=== PATIENT | female | born 1955 | race Caucasian/White ===

== ENCOUNTER 2022-01-19 12:56 | Emergency (ER) | payer MEDICARE ==
[2022-01-19 13:11] VITALS: BP 158/109
--- NOTE | 2022-01-19 13:17 | ED Physician Documentation ---
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 Tetanus is up-to-date. No loss of consciousness or headache. 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, No motor deficit, No sensory deficit, Normal speech Eye Opening: Spontaneous Motor: Obeys Commands Verbal: Oriented GCS Score: 15 - Psych Psych: Normal mood, Normal affect Results - Vitals Vitals: Vital Signs - 24 hr 01/19/22 13:09 Temperature 37.2 C Heart Rate 120 H Respiratory 18 Rate Blood Pressure 158/109 H O2 Saturation 99 Oxygen O2 Source Room air Procedures - Laceration (location) scalp Length in cm: 2 Wound type: Linear, Into subcut fat Tendon involvement: Tendon intact Anesthesia: Lidocaine 1% with epi Wound preparation: Irrigated copiously NS Skin layer closure: Union (4) Other: Patient tolerated well, No complications, Neurovascular intact, Tetanus UTD PD MEDICAL DECISION MAKING - ED course ED course: We discussed cranial imaging, she does not have any real signs of head injury per se other than the laceration and she declined after discussion and was given signs and symptoms to watch out and return for. Departure - Departure Disposition: 01 Home, Self Care Clinical Impression: Scalp laceration Qualifiers: Encounter type: initial encounter Qualified Code(s): S01.01XA - Laceration without foreign body of scalp, initial encounter Condition: Good Record reviewed to determine appropriate education?: Yes Instructions: ED Laceration Scalp Stitch Or Stap Comments: The kash need to come out in about a week or 10 days, you can follow-up with the urgent care in [place] or with your primary care physician or if necessary return here for that. Washing with soap and water/shampoo conditioner is fine. Otherwise just leave it alone. Return for new or worsening symptoms.
== END 2022-01-19 13:25 | disposition home or self-care (01) ==
LOC: ED 12:56
DX: S01.01XA Laceration without foreign body of scalp, initial encounter (principal); W22.8XXA Striking against or struck by other objects, initial encounter; Y93.H9 Activity, other involving exterior property and land maintenance, building and construction
CPT/HCPCS: 12001; 99281